=== PATIENT | male | born 1995 | race Caucasian/White ===

== ENCOUNTER 2016-09-14 10:14 | Observation (INO) | payer OTHER ==
[~2016-09-14] VITALS: Ht 188 cm; Wt 175.2 kg
[2016-09-14] VITALS (10 sets, daily range): BP systolic 87–127; BP diastolic 51–80; PULSE 90–130; RESP 14–36; O2SAT 96–100
--- NOTE | 2016-09-14 10:21 | ED.REPORT ---
HPI-Chest Pain 40 and Over Date of Service Sep 14, 2016 ED Provider: Sebas Hannah DO 21 year old obese male with diabetes and HTN presents to the ER via EMS complaining of chest pain and lightheadedness this morning. Patient was seen three days ago at [facility] in [place], [place], for similar symptoms and hematemesis where he was admitted overnight and was told that he had fluid around his heart, and a small esophageal tear. At that time he had a CT, US, and echocardiogram done. This morning he began having chest tightness, lightheadedness, and general malaise, and he reports "feeling hot" for the past day. He called his PCP for his symptoms today, and the nurse subsequently referred him to the ER here. No hematemesis since his recent hospital stay. Nursing Notes Stated Complaint: CHEST PRESSURE/DIZZY Chief Complaint: Chest Pain Nursing Notes Reviewed: Yes Allergies: Coded Allergies: metformin (Verified Adverse Reaction, Intermediate, VOMITTING AND DIARRHEA , 09/14/16) Scheduled Colchicine (Colchicine) 0.6 Mg Capsule 0.6 MG PO BID Metoprolol Tartrate (Metoprolol Tartrate) 25 Mg Tablet 25 MG PO BID General Time Seen by MD: 10:20 Chief Complaint Chest pain Hx Obtained From: Patient Arrived By: Ambulance Sudden in Onset?: No Onset Occurred: 4 days ago Symptom Duration: Since onset Location: : Substernal Quality: Painful, Pressure Severity: Current: Moderate Severity: Maximum: Moderate Associated with: Reports: Dizziness, Palpitations Past Medical History Past Medical History Reports: Diabetes mellitus, Hypertension Reports: Obesity Past Surgical History Meniscus repair Family History Father, blood clots Smoking History Unknown if Ever Smoker Social History Other Social History: Good social support Ambulatory Status Independent Review of Systems Constitutional: Reports: Malaise Respiratory: Denies: Non-productive cough, Shortness of breath Cardiovascular: Reports: Chest pain, Palpitations GI: Reports: Nausea, Denies: Vomiting Musculoskeletal: Denies: Back pain, Extremity pain, Lumbar pain, Neck pain Neurologic: Reports: Dizziness, Lightheaded, Denies: Headache Complete sys rev & neg: except as marked. Physical Exam Initial Vital Signs Vital Signs (First) Date Time Temp Pulse Resp B/P Pulse Ox O2 Delivery O2 Flow Rate FiO2 09/14/16 10:18 36.6 130 36 114/51 09/14/16 12:34 97 Room Air 09/14/16 14:06 2 Initial VS: Reviewed Head / Eyes: Atraumatic, Normocephalic Neck: Supple, Non-tender, Full range of motion Extremities: Vascular intact, Neuro intact, No swelling, No tenderness Skin: Warm, Dry, No cyanosis Neurologic: Alert, Oriented, Nonfocal General/Constitutional: Awake, Alert, Well developed, Well nourished Appearance / Presentation: Positive: Obese Respiratory / Chest: Breath sounds NL, Breath sounds = bilat, No respiratory distress, No rales, No rhonchi, No wheezing, No stridor, No chest tenderness Cardiovascular: Regular rhythm, No gallop, No murmurs, No rubs Heart Rate / Rhythm: Positive: Tachycardia Abdomen: Soft, Non-tender, No guarding, No rebound, No distention Interpretation & Diagnostics Bedside Ultrasound, performed by ne Small pericardial effusion. No RV bowing. Lab Results Interpretation Result Diagram: 09/14/16 1031 09/14/16 1031 Test 09/14/16 10:31 09/14/16 12:36 09/14/16 13:25 White Blood Count 10.6th/mm3 (3.8-10.1) Red Blood Count 5.27mil/mm3 (4.40-5.80) Hemoglobin 15.0g/dL (13.8-17.2) Hematocrit 42.7% (41.0-50.0) Mean Corpuscular Volume 81.0fL (81-100) Mean Corpuscular Hemoglobin 28.5pg (27.0-35.0) Mean Corpuscular Hemoglobin Concent 35.1% (32.0-37.0) Red Cell Distribution Width 13.9% (12.3-15.4) Platelet Count 296bil/L (150-400) Neutrophils (%) (Auto) 67.7% (40-74) Lymphocytes (%) (Auto) 22.1% (14-46) Monocytes (%) (Auto) 8.0% (4-12) Eosinophils (%) (Auto) 1.1% (0-5) Basophils (%) (Auto) 0.4% (0-3) Sodium Level 134mEq/L (134-144) Potassium Level 4.1mEq/L (3.5-5.2) Chloride Level 95mEq/L (97-108) Carbon Dioxide Level 25mmol/L (18-29) Blood Urea Nitrogen 9mg/dL (6-20) Creatinine 0.96mg/dL (0.76-1.27) Estimat Glomerular Filtration Rate 103mL/min (>59) Glucose Level 242mg/dL (60-99) Calcium Level 9.1mg/dL (8.5-10.1) Magnesium Level 1.5mg/dL (1.6-2.6) Total Bilirubin 0.5mg/dL (0.0-1.2) Aspartate Amino Transf (AST/SGOT) 36U/L (0-50) Alanine Aminotransferase (ALT/SGPT) 65U/L (0-44) Alkaline Phosphatase 55U/L (25-150) Total Protein 7.5g/dL (6.4-8.4) Albumin 4.3g/dL (3.4-5.0) Hold Urine Received (Received) Troponin T < 0.010ug/L (0.0-0.011) ECG Interpretation ECG Interpretation: Sinus tachycardia, rate 126 Time: 10:25 Interpreted by: ED physician X-Ray Chest Interpretation Chest Xray Interpretation: IMPRESSION: No acute disease Dictated by: Jeffrey Kumar M.D. on 09/14/2016 at 11:30 Approved by: Jeffrey Kumar M.D. on 09/14/2016 at 11:30 View: Portable, 1 view Interpretation / Wet Read by: Interpret - Radiologist CT Chest Interpretation IMPRESSION: 1. No evidence of pulmonary embolism within the main pulmonary arteries. Distal branches are suboptimally evaluated. Dictated by: Mercedes Anderson M.D. on 09/14/2016 at 13:18 Approved by: Mercedes Anderson M.D. on 09/14/2016 at 13:24 Study type: CT pulm angiogram Interpretation / Wet Read by: Interpret - Radiologist Re-Eval/Medical Decision Med Decision/Clinical Course Reviewed records from recent admission and discharge at [facility], patient's hemoglobin is stable from several days ago he continues to have a small pericardial effusion, and bedside echocardiogram I do not see signs of tamponade not. He has a baseline tachycardia each seems to been documented previously in prior notes. Serial troponins and EKGs are nonischemic, given the tachycardia and shortness of breath and recent hospitalization CT angiogram of the chest to exclude pulmonary embolism was performed and unremarkable with the exception of a small effusion. Overall it is felt this likely represents pericarditis given his history recently of GI bleeding aspirin and NSAIDs will be held over colchicine will be initiated. This is all after discussion with cardiology on-call. Patient will be discharged. Return and follow-up precautions are given. Source of Hx: Old records Summary of Info: Hgb 15 Small pericardial effusion, question whether cP peptic ulcer or percarditis. LVEF 65% CT abdomen pelvis nothing acute, small pericardial effusion TSH normal Free T4 normal Time of Eval: 10:42 Re-Evaluation/Progress Note: Performed bedside ultrasound. Discussed results with patient. Time of Eval: 12:46 Re-Evaluation/Progress Note: Discussed CT results. Time of Eval: 13:04 Re-Evaluation/Progress Note: Patient is currently lightheaded. Time of Eval: 14:08 Re-Evaluation/Progress Note: Patient passed road test. Discussed lab and radiology results, physical examination findings and plan to discharge. Patient is amenable to the plan. Return precautions given. All other questions addressed. Consultation : Referral / Consult Name: Bebo Washington MD Consulted With: Cardiology Call Returned at: 13:59 Note: Discussed patient case with Dr. Washington, Cardiology. Colchicine 0.6mg bid for pericarditis. Counseled Regarding: Diagnosis, Lab results, Need for follow-up, When/why to return to ED Discharge & Departure Primary Impression: Chest pain Additional Impression: Pericarditis Disposition: Home Discharge Condition All VS Reviewed: Yes Condition: Stable Patient Instructions: Acute Pericarditis (DC) Additional Instructions: It appears that you have a mild pericardial effusion which is likely pericarditis. Use colchicine and metoprolol for this. Follow-up with cardiology and your primary care doctor in the next week. Return to ER if you develop severe chest pain, high fevers or shortness of breath, passing out, or other concerns. Referrals: NOPCP (PCP) Bebo Washington MD, NATHAN MD Scribe Attestation Portions of this note were transcribed by Kash Espinal. I, Dr. Hannah, personally performed the history, physical exam and medical decision-making; I reviewed and confirmed the accuracy of the information in the transcribed note. Signed by: Cassidy Kuhn, 09/14/2016 and 14:25 copies to: Bebo Washington MD; PETER BEAVER MD, Timothy S DO Sep 14, 2016 10:21 KASH ESPINAL Sep 14, 2016 10:34
[2016-09-14] MEDS ORDERED: Ondansetron 2 mg/mL 2 mL Inj IVPUSH ONE (10:30)
[2016-09-14 10:40] LABS: BASOPHILS % (AUTO) 0.4 % (0-3); EOSINOPHILS % (AUTO) 1.1 % (0-5); Mean Corpuscular Hemoglobin 28.5 pg (27.0-35.0); NEUTROPHILS % (AUTO) 67.7 % (40-74); Platelet Count 296 bil/L (150-400)
[2016-09-14 11:06] LABS: TROPONIN T 0.01 ug/L (0.0-0.011)
[2016-09-14 11:17] LABS: Magnesium 1.5 mg/dL (1.6-2.6)
[2016-09-14] MEDS ORDERED: Magnesium Sulf 4 Gm/100 mL H2O 4 GM in IV Premix 1 EACH IV ONE (11:25)
--- NOTE | 2016-09-14 11:32 | DRSVH ---
PROCEDURE: X-RAY CHEST ONE VIEW, PORTABLE ([id number]) INDICATIONS: chest pain TECHNIQUE: One view of the chest was acquired. COMPARISON: [facility], CR, XR CHEST 1VW (PORTABLE), 07/12/2016, 11:10. FINDINGS: Surgical changes and devices: None. Lungs and pleura: No pleural effusions or pneumothorax. Lungs are clear. Low lung volumes Mediastinum: Mediastinal contours appear normal. Heart size is normal. Bones and chest wall: No suspicious bony lesions. Overlying soft tissues appear unremarkable. IMPRESSION: No acute disease Dictated by: Jeffrey Kumar M.D. on 09/14/2016 at 11:30 Approved by: Jeffery Kumar M.D. on 09/14/2016 at 11:30
[2016-09-14] MEDS ORDERED: IVIG per Pharmacy (Initial) XX ONE (11:40)
[2016-09-14] MEDS ORDERED: LidocaineVisc 2%:Antacid 1:1 10 mL Syringe PO ONE (13:10)
--- NOTE | 2016-09-14 13:26 | DRSVH ---
PROCEDURE: CT ANGIO CHEST PULMONARY EMBOLISM ([id number]) INDICATIONS: chest pain, SOB, recent hospitalization TECHNIQUE: After the administration of intravenous contrast, 2 mm thick sections acquired from the pulmonary api leona to the posterior costophrenic angles. 3-dimensional maximum intensity projection (MIP) coronal a nd sagittal reformats were then acquired through the thorax. For radiation dose reduction, the follo wing was used: automated exposure control, adjustment of mA and/or kV according to patient size. COMPARISON: [facility], CT, CT ANGIO CHEST PE, 07/12/2016, 12:52. FINDINGS: Image quality: Opacification is suboptimal for evaluation of pulmonary emboli distal to the main pul monary arteries. Pulmonary arteries: Pulmonary arteries are normal in size, and demonstrate no intraluminal filling d efects to suggest central pulmonary embolism. Lungs and pleura: Lungs are clear. No pleural effusions or pneumothorax. Central and peripheral ai rways are patent. Mediastinum: Heart size is normal. There is a mild pericardial effusion measuring 12 mm in AP dimen stion. No mediastinal or hilar adenopathy. Thoracic aorta is normal in caliber and enhancement. Es ophagus is normal in caliber, without hiatal hernia. Bones and chest wall: No suspicious bony lesions. Ribs and thoracic spine appear intact throughout. Thyroid gland is unremarkable. No axillary or supraclavicular adenopathy. Abdomen: Hepatic steatosis is present. Visualized upper abdominal solid organs appear normal in the early arterial phase of enhancement. IMPRESSION: 1. No evidence of pulmonary embolism within the main pulmonary arteries. Distal branches are subopt imally evaluated. Dictated by: Mercedes Anderson M.D. on 09/14/2016 at 13:18 Approved by: Mercedes Anderson M.D. on 09/14/2016 at 13:24
[2016-09-14] MEDS ORDERED: METO25TA6 PO (14:20)
[2016-09-14] MEDS ORDERED: COLC0.6C3 PO (14:20)
[2016-09-14] MEDS ORDERED: 0.9% Sodium Chloride 1,000 ML IV ONE (14:35)
--- NOTE | 2016-09-14 15:39 | DRSVH ---
Formerly [facility] [address] [place] [address] Echocardiogram Report Name: RICHARD OROURKE Study Date: 09/14/2016 Height: 7 4 in Hospital Exam Location: [facility] Weight: 3 90 lb Gender: Male BSA: 2.9 m2 : 1995 Age: 21 yrs BP: 118/6 7 mmHg Reason For Study: Pericardial Effusion History: pericardial effusion, diabetes, hypertension Performed By: Wen Dia Referring Physician: JADYN FISH Interpretation Summary A two-dimensional transthoracic echocardiogram with color flow and Doppler was performed in limited views only. The subcostal views were difficult to obtain and are suboptimal in quality. The left ventricle is mild-moderately dilated. Left ventricular systolic function is normal. The ejection fraction is estimated to be 60-65%. The right ventricle grossly appears normal in size with probable normal systolic function. There is a trivial to small pericardial effusion noted. There are no echocardiographic indications of cardiac tamponade. Procedure: A two-dimensional transthoracic echocardiogram with color flow and Doppler was performed in limited views only. The subcostal views were difficult to obtain and are suboptimal in quality. There is no prior echocardiogram noted for this patient. The patient was in normal sinus rhythm during the exam. Left Ventricle: The left ventricle is mild-moderately dilated. Left ventricular wall thickness is mildly increased. The ejection fraction is estimated to be 60-65%. Left ventricular systolic function is normal. Regional wall motion abnormalities cannot be excluded due to limited visualization. The E/E'is normal. Right Ventricle: The right ventricle grossly appears normal in size with probable normal systolic function. Mitral Valve: There is mild mitral annular calcification. The mitral valve is grossly normal. Aortic Valve: The aortic valve is not well visualized. There is no aortic valve stenosis. Tricuspid Valve: The tricuspid valve is not well visualized. Pulmonary artery pressures cannot be estimated because of the lack of a measurable TR jet velocity. There is trace tricuspid regurgitation. Pulmonic Valve: The pulmonic valve is not well visualized. Pericardium/ Pleura There is a trivial to small pericardial effusion noted. There are no echocardiographic indications of cardiac tamponade. MMode/2D Measurements & Calculations LVIDd LV durham. diameter/BSA (cm/m^2) LV sys. diameter/BSA (cm/m^2) : 6.4 cm LVIDs : 4.5 cm FS: 29.4 % IVSd: 1.1 cm LVPWd : 1.2 cm Doppler Measurements & Calculations MV E max adrien MV E/A: 1.0 MV dec time MV P1/2t max adrien : 83.4 cm/sec Med Peak E' Adrien : 0.19 sec MV A max adrien : 82.0 cm/sec E/E' med: 9.9 MVA(P1/2t): 3.9 cm2 MV P1/2t: 56.7 msec Reading Physician:GINETTE
[2016-09-14] MEDS ORDERED: PANT20TA2 PO (16:28)
[2016-09-14] MEDS ORDERED: GLIM2TAB2 PO (16:28)
[2016-09-14] MEDS ORDERED: OXYC-474 PO (16:28)
[2016-09-14] MEDS ORDERED: PROC5TAB PO (16:28)
[2016-09-14] MEDS ORDERED: PRAV20TA2 PO (16:28)
[2016-09-14] MEDS ORDERED: ASPI-973 PO (16:28)
[2016-09-14] MEDS ORDERED: LISI-571 PO (16:28)
[2016-09-14] MEDS ORDERED: Glucose 40% Oral Gel 15 Gm Tube PO PRN (17:00)
[2016-09-14] MEDS ORDERED: Ondansetron 2 mg/mL 2 mL Inj IVPUSH PRN (17:05)
[2016-09-14] MEDS ORDERED: Alum-Mag Hydrox-Simeth 30 mL Suspension PO PRN (17:05)
[2016-09-14] MEDS: Insulin LISPRO 300 Unit/3 mL Inj SUBQ SCH ×2 (17:30→20:41)
[2016-09-14] MEDS: 0.9% Sodium Chloride 1,000 ML IV SCH (17:51)
--- NOTE | 2016-09-14 18:34 | NUR ---
Admit Pt admitted to [facility] from ED at 1705. Pt denies pain. girlfriend at bedside. Pt oriented to room and facility. Pt denied having questions. Tele placed on pt and monitor made aware. Admit done by admit RN. Bed in low position, upper rails up, call light in reach.
--- NOTE | 2016-09-14 19:04 | PCM.HPMED ---
Subjective Date of Service Sep 14, 2016 Primary Provider: Admitting Physician: David Yeager MD Primary Care Physician: Geo Blanton MD Attending Physician: David Yeager MD Chief Complaint: Chest pain // lightheadedness HISTORY was OBTAINED FROM PATIENT / MEDITECH NOTES History of present illness 21-year-old man discharged a few days ago after hematemesis admission at [facility] associated pericardial effusion, treated with PPI, home with aspirin and colchicine. He has been feeling hot for the last few days chest pain today lightheadedness today. In the ER when he stands up he gets lightheaded. ER doc spoke to cardiology who recommended gentle fluid resuscitation. No hematemesis since [facility] admission. Chest pain is typical for his recurrent sinus tachycardia - which has no triggers, occurs at rest and w/ activity, no better w/ vagal maneuvers or w/ rest, not positional. nitroglycerine helps. multiple past TSH are normal. Holter monitor per . no stress study performed. no follow up recommended by waste/materials exchange specialist. sinus tachy has reached 160s per patient. In the ER, heart rate maximum 130 sinus tach, blood pressure minimum 80s/60s, on room air [facility] 09/11-, after increased back pain, using ibuprofen, vomited, felecia grimaldo tear pill esophagitis noted, associated w/ Sinus tach 120- 140sconcurrently new pericardial fluid noted (compared to no pericardial fluid noted in 07/13/[address] chest) w/ echo EF 60-65% minimal effusion/no tamponade NORMAL LV SIZE AND FUNCTION, TRACE MR TR, VERY SMALL PERICARDIAL EFFUSION , no symptoms consistent w/ infection, discharged w/ PPI and follow up w/ PCP/waste/materials exchange specialist f/u. Review of Systems - none of the following - F/C/sick contact / GHOSH / sob / cough / acid reflux / n/v/diarrhea / bleeding/bruising / leg swelling / change in voiding / yeast infections / rash ambulates intentional wt loss back pain improving, better w/ movement sitting up FAMILY HX Father, blood clots // arthritis SOCIAL HX never smoker MEDICATIONS Scheduled Colchicine (Colchicine) 0.6 Mg Capsule 0.6 MG PO BID Metoprolol Tartrate (Metoprolol Tartrate) 25 Mg Tablet 25 MG PO BID glimerpiride 2 lisinopirl pravastatin oxycodone prochlorperazine Past Medical/Surgical HX Diabetes mellitus, Hypertension DLP Obesity meniscal operations joint issues during childhood gerd plantar fasciiits LUIS ALFREDO anxiety Allergies Coded Allergies: metformin (Verified Adverse Reaction, Intermediate, VOMITTING AND DIARRHEA , 09/14/16) PMH Social History Hx Alcohol Use: Yes (COUPLE X/WEEK) Alcoholic Drinks Per Day: 6 cans of beer, 3 shots of liquor, 2-3 standard drinks or equivalent/week Hx Substance Use: No Smoking Status: Current Some Day Smoker Exam Vital Signs Vital Sign - Last Date Time Temp Pulse Resp B/P Pulse Ox O2 Delivery O2 Flow Rate FiO2 09/14/16 14:35 127 20 87/69 98 Room Air 09/14/16 14:20 2 09/14/16 14:06 36 Lab and Diagnostics Labs Exam on admission NAD A and O x 3 mood affect WNL NC/AT no icterus no injected eyes EOMI PERRL /no pharyngeal lesions/ no oral lesions / hearing intact Supple neck CTAB equal chest rise / no accessory muscle use / speaks in full sentences / no rrw RRR S1 S2 / no mrg / 2+ radial pulses Soft nt nd + BS no hepatosplenomegaly No edema no cyanosis no ecchymosis of lower extremities No rash / no jaundice MCCALL symmetrical facies EKG no ST changes no T peaked SR 130 Trop neg x 2 No left shift UA pending LFT neg Imaging PROCEDURE: CT ANGIO CHEST PULMONARY EMBOLISM ([id number]) INDICATIONS: chest pain, SOB, recent hospitalization TECHNIQUE: After the administration of intravenous contrast, 2 mm thick sections acquired from the pulmonary apices to the posterior costophrenic angles. 3-dimensional maximum intensity projection (MIP) coronal and sagittal reformats were then acquired through the thorax. For radiation dose reduction, the following was used: automated exposure control, adjustment of mA and/or kV according to patient size. COMPARISON: [facility], CT, CT ANGIO CHEST PE, 07/12/2016, 12:52. FINDINGS: Image quality: Opacification is suboptimal for evaluation of pulmonary emboli distal to the main pulmonary arteries. Pulmonary arteries: Pulmonary arteries are normal in size, and demonstrate no intraluminal filling defects to suggest central pulmonary embolism. Lungs and pleura: Lungs are clear. No pleural effusions or pneumothorax. Central and peripheral airways are patent. Mediastinum: Heart size is normal. There is a mild pericardial effusion measuring 12 mm in AP dimenstion. No mediastinal or hilar adenopathy. Thoracic aorta is normal in caliber and enhancement. Esophagus is normal in caliber, without hiatal hernia. Bones and chest wall: No suspicious bony lesions. Ribs and thoracic spine appear intact throughout. Thyroid gland is unremarkable. No axillary or supraclavicular adenopathy. Abdomen: Hepatic steatosis is present. Visualized upper abdominal solid organs appear normal in the early arterial phase of enhancement. IMPRESSION: 1. No evidence of pulmonary embolism within the main pulmonary arteries. Distal branches are suboptimally evaluated. 09/14/15 echo Interpretation Summary A two-dimensional transthoracic echocardiogram with color flow and Doppler was performed in limited views only. The subcostal views were difficult to obtain and are suboptimal in quality. The left ventricle is mild-moderately dilated. Left ventricular systolic function is normal. The ejection fraction is estimated to be 60-65%. The right ventricle grossly appears normal in size with probable normal systolic function. There is a trivial to small pericardial effusion noted. There are no echocardiographic indications of cardiac tamponade. Result Diagram: 09/14/16 1031 09/14/16 1031 Assessment & Plan Active issues and reason for admission RECURRENT CHEST PAIN, LIKELY DUE TO RECURRENT paroxysmal SINUS TACHYCARDIA, likely causing the associated HYPOTENSION AND RECENT ONGOING small PERICARDIAL FLUID AND NEW LV FINDING OF MILD TO MODERATELY DILATED COMPARED TO 09/11/[address] [facility] -- TSH/cortisol/orthostatics - hypotension --STRESS TREADMILL exercise in the am - chest pain/sinus tachycardia --PRN NITROGLYCERINE - chest pain // hold metoprolol --troponin I 2 is negative, 2 more troponin, EKG without peaked T waves and without ST elevations diffusely -- consider pericarditis medications though lacking symptoms/signs/history. aspirin colchicine started in ER -- Blood cultures pending//KENTRELL//RF are pending - pericardial effusion --TALK TO again - aware of the pericardial effusion, but not about the possible increase of LV size in 3-4 days time based on review of reports recent Felecia-Grimaldo/pill esophagitis Continue PPI Monitor hemoglobin low back pain, improving off NSAIDs thought to have contributed to pill esophagitis/malloryweiss tear Chronic issues known prior to admission, present on admission Diabetes/dyslipidemia/HTN -- Statin/sliding-scale insulin // continue lisinopril Diet DM cardiac DVT prophylaxis scd ambulate Code full Disposition OBS status Assessment and plan were discussed with patient family. David Yeager MD Sep 14, 2016 17:09
[2016-09-14] MEDS ORDERED: Nitroglycerin 2% 1 Gm Ointment TOPICAL PRN (19:40)
[2016-09-14] MEDS: Pantoprazole 40 mg ER24 Tablet PO SCH (20:40)
[2016-09-14 22:27] LABS: APPEARANCE,URINE CLEAR (CLEAR,HAZY); COLOR,URINE YELLOW (YELLOW); OCCULT BLOOD,URINE TRACE (NEGATIVE); PH,URINE 5.5 (5.0-8.0); UROBILINOGEN,URINE NORMAL (NORMAL)
[2016-09-15] VITALS (8 sets, daily range): BP systolic 103–126; BP diastolic 66–85; PULSE 76–98; RESP 16–18; O2SAT 93–99
[2016-09-15 06:44] LABS: Mean Corpuscular Hemoglobin 28.1 pg (27.0-35.0); Mean Corpuscular Volume 82.8 fL (81-100)
[2016-09-15 06:53] LABS: TROPONIN T 0.01 ug/L (0.0-0.011)
[2016-09-15 07:04] LABS: Magnesium 1.9 mg/dL (1.6-2.6)
[2016-09-15] MEDS: Insulin LISPRO 300 Unit/3 mL Inj SUBQ SCH ×4 (08:00→21:59)
[2016-09-15] MEDS: 0.9% Sodium Chloride 1,000 ML IV SCH (09:03)
[2016-09-15] MEDS: Pantoprazole 40 mg ER24 Tablet PO SCH ×2 (09:03→21:56)
--- NOTE | 2016-09-15 10:15 | NUR ---
Social Work: Screening Data: Pt is a 21 y/o male admitted for near syncope. Pt's PCP is Dr Altamirano, pt's insurance is [employer] EMR reviewed. Pt's readmit score is 4, low. No d/c planning needs anticipated at this time. [employer] will continue to follow if needs arise. Assessment: Pt who is independent at baseline. Plan: Pt will d/c home via POV when medically stable. No d/c planning needs anticipated at this time. [employer] will continue to follow if needs arise. LORIE Cunningham
--- NOTE | 2016-09-15 11:28 | NUR ---
OFF unit-[facility] Pt taken off unit by [facility] staff on at 1110. Tele taken off. Pt wearing [facility] [place] Addendum: 09/15/16 at 1250 by ANNMARIE ZUÑIGA RN Pt back from test. Placing lunch order now. Back on tele. Pt denies pain/dizziness.
[2016-09-15] MEDS ORDERED: Labetalol 5 mg/mL 4 mL Inj IVPUSH ONE (15:00)
--- NOTE | 2016-09-15 15:06 | NUR ---
HR RN made aware that pts HR at 120. Pt assessed. At the time, pt was getting out of bed to bathroom. Manual HR checked afterwards. pts HR 100. MD made aware. IV 1x labetalol ordered. Bed in low position, call light in reach. Will continue with frequent assessments.
--- NOTE | 2016-09-15 15:48 | PCM.PNMED ---
Subjective Date of Service Sep 15, 2016 Subjective Patient reports that he is doing well today. He denies any chest pain, shortness of breath, diaphoresis, blurred vision, lightheadedness. Patient also denies any fever, chills, nausea, vomiting or diarrhea. Patient reports that he notes some mild chest pressure when he lies on his side, but does not notice any improvement or worsening when leaning forward leaning back or any other position changes. Patient reports that this morning he feels that he is back to baseline, and has no complaints currently. Exam Vital Signs Vital Sign - Last Date Time Temp Pulse Resp B/P Pulse Ox O2 Delivery O2 Flow Rate FiO2 09/15/16 12:58 37.3 88 16 115/80 93 Room Air 09/14/16 14:20 2 Intake and Output 09/14/16 09/14/16 09/15/16 Cumulative From/Thru 15:00 23:00 07:00 09/14/16 10:18 - 09/14/16 18:51 Intake Total 100 ml 100 ml Output Total 150 ml 600 ml 750 ml Balance -150 ml -500 ml -650 ml Intake Oral 100 ml 100 ml Output Urine Total 150 ml 600 ml 750 ml # Voids 1 0 1 Exam General: Obese. No acute distress, well-developed, well-nourished, appropriately interactive HEENT: Normocephalic, atraumatic. External ears without defect. Pupils equal, round, and reactive to light and accommodation. Anicteric sclerae, moist conjunctivae. Oropharynx with moist mucosa. Neck: Supple with full range of motion. Cardiovascular: Regular rate and rhythm with no murmurs, rubs, or gallops appreciated Pulmonary: Clear to auscultation bilaterally with no crackles, wheezes, or rhonchi. Normal respiratory effort with no use of accessory muscles. Abdomen: Bowel tones present. Soft, nontender, nondistended. Extremities: No clubbing, cyanosis, edema appreciated. Skin: Normal temperature, turgor, and texture; no rash, ulcers, or subcutaneous nodules appreciated. Psychiatric: Normal mood and affect. Alert and oriented to person, place, and time. IVs and Medications Medications Reviewed: Medications were reviewed in detail Lab and Diagnostics Result Diagram: 09/15/1661209/15/16612 X-Rays, CTs and MRIs PROCEDURE: X-RAY CHEST ONE VIEW, PORTABLE ([id number]) INDICATIONS: chest pain TECHNIQUE: One view of the chest was acquired. COMPARISON: [facility], CR, XR CHEST 1VW (PORTABLE), 07/12/2016, 11 :10. FINDINGS: Surgical changes and devices: None. Lungs and pleura: No pleural effusions or pneumothorax. Lungs are clear. Low lung volumes Mediastinum: Mediastinal contours appear normal. Heart size is normal. Bones and chest wall: No suspicious bony lesions. Overlying soft tissues appear unremarkable. IMPRESSION: No acute disease Dictated by: Jeffrey Kumar M.D. on 09/14/2016 at 11:30 Approved by: Jeffrey Kumar M.D. on 09/14/2016 at 11:30 PROCEDURE: CT ANGIO CHEST PULMONARY EMBOLISM ([id number]) INDICATIONS: chest pain, SOB, recent hospitalization TECHNIQUE: After the administration of intravenous contrast, 2 mm thick sections acquired from the pulmonary apices to the posterior costophrenic angles. 3-dimensional maximum intensity projection (MIP) coronal and sagittal reformats were then acquired through the thorax. For radiation dose reduction, the following was used: automated exposure control, adjustment of mA and/or kV according to patient size. COMPARISON: [facility], CT, CT ANGIO CHEST PE, 07/12/2016, 12:52. FINDINGS: Image quality: Opacification is suboptimal for evaluation of pulmonary emboli distal to the main pulmonary arteries. Pulmonary arteries: Pulmonary arteries are normal in size, and demonstrate no intraluminal filling defects to suggest central pulmonary embolism. Lungs and pleura: Lungs are clear. No pleural effusions or pneumothorax. Central and peripheral airways are patent. Mediastinum: Heart size is normal. There is a mild pericardial effusion measuring 12 mm in AP dimenstion. No mediastinal or hilar adenopathy. Thoracic aorta is normal in caliber and enhancement. Esophagus is normal in caliber, without hiatal hernia. Bones and chest wall: No suspicious bony lesions. Ribs and thoracic spine appear intact throughout. Thyroid gland is unremarkable. No axillary or supraclavicular adenopathy. Abdomen: Hepatic steatosis is present. Visualized upper abdominal solid organs appear normal in the early arterial phase of enhancement. IMPRESSION: 1. No evidence of pulmonary embolism within the main pulmonary arteries. Distal branches are suboptimally evaluated. Dictated by: Mercedes Anderson M.D. on 09/14/2016 at 13:18 Approved by: Mercedes Anderson M.D. on 09/14/2016 at 13:24 Assessment & Plan 1. Acute chest pain, present on admission, resolved -Patient has prn nitroglycerin and morphine available for pain -Troponins have been trended, and remained normal -Stress test today, patient will require resting test in the morning tomorrow -CT did not demonstrate a pulmonary embolism 2. Sinus tachycardia, present on admission, ongoing -Pt has been seen once at for evaluation, and has an appointment with Dr Tan in [place] for his tachycardia -Pt had tachycardia while in hospital, treated with 20mg IV Labetalol -Pt will likely need to discharge on beta sarah for rate control, until he can be evaluated and managed by outpatient cardiology. -TSH and T4 pending 3. Recently diagnosed diabetes mellitus, present on admission, ongoing -Holding home medications -Low dose correctional in place -Diabetic diet when able to eat 4.Recent history of eli-grimaldo esophagitis suspected to be secondary to nsaid use -Avoid NSAIDs -Continue to monitor for bleeding -Continue PPI 5. Chronic low back pain, stable -Avoid NSAIDs DVT prophylaxis scd ambulate Code full VTE Mechanical Devices: Venous Foot Pump Resuscitation Status: CPR: Attempt Resuscitation Attending Statement The patient was seen and examined together with Dr. Galvez on 09-15-16 and I agree with the history, exam and plan as outlined in the note above. Patient has prn Morphine IV ordered for pain. copies to: PETER BEAVER MD, Tara L DO Sep 15, 2016 15:48 Abraham Gómez MD Sep 16, 2016 14:44
[2016-09-16 01:33] VITALS: BP 124/76; PULSE 99; RESP 16; O2SAT 99
[2016-09-16 05:01] VITALS: BP 107/69; PULSE 99; RESP 20; O2SAT 99
[2016-09-16 06:36] LABS: BASOPHILS % (AUTO) 0.6 % (0-3); EOSINOPHILS % (AUTO) 2.4 % (0-5); MONOCYTES % (AUTO) 9.9 % (4-12); Mean Corpuscular Hemoglobin 28.1 pg (27.0-35.0); NEUTROPHILS % (AUTO) 60.1 % (40-74); Platelet Count 258 bil/L (150-400)
[2016-09-16 06:39] VITALS: PULSE 99
[2016-09-16] MEDS: Pantoprazole 40 mg ER24 Tablet PO SCH (07:55)
[2016-09-16] MEDS: Insulin LISPRO 300 Unit/3 mL Inj SUBQ SCH ×2 (07:56→11:28)
[2016-09-16 09:54] VITALS: BP 126/83; PULSE 105; RESP 18; O2SAT 98
[2016-09-16 10:12] VITALS: PULSE 107
[2016-09-16 13:21] VITALS: BP 97/69; PULSE 106; RESP 20; O2SAT 98
--- NOTE | 2016-09-16 15:15 | DRSVH ---
PROCEDURE: 2 DAY STRESS TEST Rest and exercise myocardial perfusion SPECT with gated imaging and ejection fraction RADIOPHARMACEUTICAL: 21.7 mCi Tc-99m tetrafosmin IV at rest and 20.8 mCi Tc-99m tetrafosmin IV at pea k exercise. Bxc-lps-exabdhnh was performed. INDICATIONS: chest pressure. TECHNIQUE: Radiopharmaceutical was injected at peak stress test, and also at rest. SPECT images wer e obtained. SPECT myocardial perfusion images were displayed in short axis, horizontal long axis, an d vertical long axis views. Gated images were reviewed using [employer] software. COMPARISON: None. CARDIAC STRESS: A standard [place] treadmill exercise tolerance test was performed by the patient under the supervision of an attending staff. The patient exercised for 5 minutes and 31 seconds; functional aerobic impai rment (HUGH) is +63 %. Hemodynamic data: There is normal blood pressure and heart rate response to exercise stress. Bety t achieved 86% of maximum predicted heart rate at peak exercise. Symptoms: Patient had chest pain during exercise. EKG: No diagnostic EKG changes of ischemia; no ectopy. FINDINGS: Raw data: There is good myocardial labeling by radiotracer. No significant motion artifacts. Left ventricle function: Gated images demonstrate normal left ventricle wall thickening. No obvous segmental wall motion abnormality. The left ventricle resting end-diastolic volume is 135 mL. Left ventricle stress ejection fraction is 63%; normal values are above 45%. Myocardial perfusion: There is very small perfusion defect noted in the apical lateral wall on the s upine stress images which does not improve with prone stress imaging but does resolve with resting im ages. The rest of LV segments are normal. IMPRESSION: Probable normal myocardial perfusion study. Images are somewhat suboptimal due to diana nt's obesity. Specificity is decreased. Apical defect is probably apical thinning is usually a norm al variant but cannot completely exclude a very small amount ischemia. LVEF ejection and LV wall ever on are grossly normal. Stress EKG was normal but patient did experience chest pain which started at 3:38 and increased to about 5/10 at peak exercise. Overall exercise capacity is significantly reduce d. Dictated by: Bebo Washington Jr., M.D. on 09/16/2016 at 14:07 Approved by: Bebo Washington Jr., M.D. on 09/16/2016 at 14:50
--- NOTE | 2016-09-16 16:23 | PCM.DIMED ---
Discharge Instructions Date of Service Sep 16, 2016 Dates of Hospitalization Sep 14, 2016 at 16:12 Discharge Diagnosis Discharge Diagnosis Chest pain etiology unclear Chronic sinus tachycardia Recently diagnosed type 2 diabetes Chronic low back pain Elevated fasting cortisol level Diet Heart Healthy, Diabetic Activity Limited until seen by PCP Call your provider Chest pain Patient Instructions Follow-up plan I would like you to follow up as soon a possible with your community service manager in [place], I will send records to his office. Abraham Gómez MD Sep 16, 2016 16:23
--- NOTE | 2016-09-16 16:31 | NUR ---
Social Work: Discharge Data: Pt is on day 2 of hospitalization. EMR reviewed. D/C orders are in. No d/c planning needs at this time. DISPATCH ASSOCIATE will continue to follow if needs arise. Assessment: Pt who is independent at baseline. Plan: Pt will d/c home via POV today. No d/c planning needs at this time. DISPATCH ASSOCIATE will continue to follow if needs arise. LORIE Cunningham
--- NOTE | 2016-09-16 16:48 | NUR ---
Discharge Patient given discharge orders. Patient given medication list with written and verbal instruction when next dose due. Patient given informational packet. Patient given follow up care instructions. Patient IV X 2 removed fully intact and asymptomatic. Patient family in room at time of discharge and were patient transportation at time of discharge. Patient left with all personal belongings.
--- NOTE | 2016-09-16 19:37 | DIS ---
[address] [address] DISCHARGE SUMMARY PATIENT: RICHARD OROURKE : 1995 MR#: [id number] ADMIT: 09/14/2016 JOB ID: [id number] DIS: 09/16/2016 PRIMARY CARE PROVIDER: 1. Dr. Sandoval, [facility], [place]. 2. Dr. Vazquez, Cardiology, [place]. FINAL DIAGNOSIS: 1. Chest pain. Etiology unclear. 2. Chronic sinus tachycardia. 3. Recently diagnosed type 2 diabetes. 4. Recent Felecia-Gresham tear and esophagitis. 5. Chronic low back pain. 6. Abnormal fasting cortisol level of 19.3. Consider further workup with outpatient providers. CONSULTANTS: None. OPERATIONS: None. BRIEF HISTORY: This is a 21-year-old, markedly overweight individual, who has followed with Cardiology down at the [facility] (those records are not available) for sinus tachycardia issues. He has seen and is following up with Dr. Vazquez, chief i dispatcher in [place]. The patient had several months of chest pain, he says since June. Sometimes it is at rest. Sometimes it is pleuritic. Sometimes it is when he lies on one side and gets better when he sits up. He has had multiple episodes. He had another such episode, presented to the ED. He was seen initially and was going to be discharged. His blood pressure was a little bit marginal and our emergency department physician asked us to admit patient to rule out an AR and look for other emergent causes for his chest discomfort. The patient was admitted to the hospital. HOSPITAL COURSE: The patient has had a negative workup. His troponins x3 were negative. CBC was unrevealing. His EKG showed no overt ischemia. Echocardiogram, done September 14, 2016, showed a slightly dilated left ventricle with normal systolic function, normal right ventricle, trivial small pericardial effusion, and nothing to indicate any tamponade. The patient underwent an angio CT in the ED. This showed no evidence of pulmonary embolism with the main pulmonary arteries. Distal branches were suboptimally evaluated and there was no other significant pathology noted to explain his pain. Rheumatoid factor was negative. The patient has been observed in the hospital. He had one more brief episode of this in the hospital but it has been pain free at this time. In terms of patient's cardiac issues, I have reviewed the myocardial perfusion scan with Dr. Washington. His impression was "Probably normal myocardial perfusion study. Images are somewhat suboptimal due to patient's obesity. Specificity is decreased. Apical defect is probably apical thinning. Is usually a normal variant but cannot completely exclude a very small amount of ischemia. LVEF ejection and LV wall motion are grossly normal. Stress EKG was normal, but patient did experience chest pain which started at 3.38 and increased to about 5/10 at peak exercise. Overall exercise capacity is significantly reduced." I reviewed this with Dr. Washington over the phone. He really feels this is a low risk scan. He does not feel patient needs to be kept in the hospital but agrees with me that patient needs follow up soon with his chief i dispatcher who knows him well up in [place]. Patient is on aspirin and a statin and will be continued on same. Patient does get some tachyarrhythmias, and I wonder whether maybe these tachyarrhythmias are precipitating some of these symptoms and whether an event monitor might be helpful for initiation of a beta-sarah, but would defer this to his chief i dispatcher at this point in time. Diabetes showed an A1c of 8. He has just been started on management. That should improve. Thyroid function tests were normal. He had an elevated fasting cortisol of 19.3. One may consider workup for Coty's disease, which would include an overnight dexamethasone suppression test, to start with. At the time of discharge, patient's KENTRELL screen is still pending but his rheumatoid factor was negative. I see nothing to suspect a connective tissue disorder at this point in time. DISCHARGE MEDICATIONS: Will include: 1. Lisinopril 5 mg daily. 2. Pravastatin 20 mg at bedtime. 3. Aspirin 81 mg daily. 4. Oxycodone 5 mg q.4 h. p.r.n. 5. Pantoprazole 20 mg q.a.m. 6. Glimepiride 2 mg daily. FOLLOWUP: Will be with his chief i dispatcher and his primary care doctor. 40 minutes of discharge time spent with patient so far this evening. [place]. CC: 1. Dr. Sandoval, [facility], [place] or [facility]. 2. Brandan Vazquez MD, Cardiology, [place].
== END 2016-09-16 16:47 | disposition home or self-care (01) ==
LOC: SED 10:14 → MPC 16:12
PROVIDERS: ADMIT Urology; ATTEND Urology
DX: R07.9 Chest pain, unspecified (principal); I47.1 Supraventricular tachycardia; E11.9 Type 2 diabetes mellitus without complications; K22.6 Gastro-esophageal laceration-hemorrhage syndrome; K20.9 Esophagitis, unspecified; M54.5 Low back pain; I95.9 Hypotension, unspecified; I31.3 Pericardial effusion (noninflammatory); I10 Essential (primary) hypertension; K21.9 Gastro-esophageal reflux disease without esophagitis; G47.33 Obstructive sleep apnea (adult) (pediatric); F41.9 Anxiety disorder, unspecified; F17.210 Nicotine dependence, cigarettes, uncomplicated; E66.9 Obesity, unspecified; R06.02 Shortness of breath; Z79.84 Long term (current) use of oral hypoglycemic drugs; Z88.8 Allergy status to other drugs, medicaments and biological substances; Z68.42 Body mass index [BMI] 45.0-49.9, adult
CPT/HCPCS: 36415; 71010; 71275; 78452; 80053; 81000; 82533; 82948; 83036; 83735; 84439; 84443; 84484; 85025; 85027; 86038; 86430; 86850; 87040; 93005; 93017; 96361; 96365; 96366; 96375; 96376; 99285; C8924; G0378; J1815; J2270; J2405; J3475; J7030; Q9967